=== PATIENT | male | born 2000 | race Two or more races ===

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

== ENCOUNTER 2019-01-20 22:48 | Emergency (ER) | payer OTHER ==
[~2019-01-20] VITALS: Ht 177.8 cm; Wt 56.7 kg
[~2019-01-20 22:48] MED LIST: CENTANY30 GM TOP; KEFLEX500 MG PO; TUSSI-PRES LIQ118 ML PO
== END 2019-01-20 23:58 | disposition home or self-care (01) ==
LOC: ER 22:48
DX: S01.82XA Laceration with foreign body of other part of head, initial encounter (principal); W18.09XA Striking against other object with subsequent fall, initial encounter; Y93.89 Activity, other specified; Y92.89 Other specified places as the place of occurrence of the external cause; Y99.8 Other external cause status

== ENCOUNTER 2019-12-08 13:12 | Emergency (ER) | payer OTHER ==
[~2019-12-08] VITALS: Ht 177.8 cm; Wt 56.7 kg
== END 2019-12-08 18:53 | disposition home or self-care (01) ==
LOC: ER 13:12
DX: K52.89 Other specified noninfective gastroenteritis and colitis (principal)

== ENCOUNTER 2020-04-14 09:37 | Emergency (ER) | payer OTHER ==
[~2020-04-14] VITALS: Ht 175.3 cm; Wt 54.0 kg
== END 2020-04-14 10:19 | disposition home or self-care (01) ==
LOC: ER 09:37
DX: L08.89 Other specified local infections of the skin and subcutaneous tissue (principal); M54.31 Sciatica, right side

== ENCOUNTER 2020-05-06 09:03 | Emergency (ER) | payer OTHER ==
[~2020-05-06] VITALS: Ht 180.3 cm; Wt 52.2 kg
== END 2020-05-06 15:40 | disposition home or self-care (01) ==
LOC: ER 09:03
DX: K50.00 Crohn's disease of small intestine without complications (principal); R10.84 Generalized abdominal pain

== ENCOUNTER 2020-08-19 09:22 | Inpatient (IN) | payer OTHER ==
[~2020-08-19] VITALS: Ht 177.8 cm; Wt 53.1 kg
[2020-08-19] MEDS ORDERED: HUMIRA PEN40 MG/0.2 (09:35)
== END 2020-08-21 08:34 | disposition home or self-care (01) | DRG 345 ==
LOC: ER 09:22 → SEC-K 18:39 → SURG 18:39
PROVIDERS: ADMIT Surgery; ATTEND Surgery
PROC: 0DJD4ZZ Inspection of Lower Intestinal Tract, Percutaneous Endoscopic Approach (ICD-10-PCS; principal; 2020-08-19 19:00)
DX: K56.1 Intussusception (principal); K50.018 Crohn's disease of small intestine with other complication; Z68.1 Body mass index [BMI] 19.9 or less, adult; Z20.828 Contact with and (suspected) exposure to other viral communicable diseases

== ENCOUNTER 2021-03-02 01:28 | Emergency (ER) | payer OTHER ==
[~2021-03-02] VITALS: Ht 180.3 cm; Wt 54.9 kg
[~2021-03-02 01:28] MED LIST changes: +HUMIRA PEN40 MG/0.2
[2021-03-02] MEDS ORDERED: ATIVAN1 M1 PO (01:45)
[2021-03-02] MEDS ORDERED: MUPIROCIN22 GM TOP (03:44)
[2021-03-02] MEDS ORDERED: CEPHALEXIN500 MG PO (03:44)
[2021-03-02] MEDS ORDERED: DOLOGESIC-DF 51 EACH PO (03:44)
== END 2021-03-02 03:51 | disposition home or self-care (01) ==
LOC: ER 01:28
DX: S00.83XA Contusion of other part of head, initial encounter (principal); S80.02XA Contusion of left knee, initial encounter; S50.02XA Contusion of left elbow, initial encounter; S60.221A Contusion of right hand, initial encounter; Y08.89XA Assault by other specified means, initial encounter; Y93.89 Activity, other specified; Y92.89 Other specified places as the place of occurrence of the external cause; Y99.8 Other external cause status

== ENCOUNTER 2021-05-10 11:36 | Emergency (ER) | payer OTHER ==
[~2021-05-10] VITALS: Ht 177.8 cm; Wt 57.2 kg
[~2021-05-10 11:36] MED LIST changes: +ATIVAN1 M1 PO; +CEPHALEXIN500 MG PO; +DOLOGESIC-DF 51 EACH PO; +MUPIROCIN22 GM TOP
[2021-05-10] MEDS ORDERED: PERCOCET 10-321 EACH (11:53)
[2021-05-10] MEDS ORDERED: NASAL MIST126 ML (11:54)
[2021-05-10] MEDS ORDERED: VISTARIL50 MG PO (16:19)
== END 2021-05-10 16:50 ==
LOC: ER 11:36
DX: G47.00 Insomnia, unspecified (principal); F12.20 Cannabis dependence, uncomplicated

== ENCOUNTER 2022-05-23 01:40 | Emergency (ER) | payer OTHER ==
[~2022-05-23] VITALS: Ht 180.3 cm; Wt 56.7 kg
[~2022-05-23 01:40] MED LIST changes: +NASAL MIST126 ML; +PERCOCET 10-321 EACH; +VISTARIL50 MG PO
[2022-05-23] MEDS ORDERED: [UNRECOGNIZED DRUG - OTHER] (01:50)
== END 2022-05-23 02:48 | disposition home or self-care (01) ==
LOC: ER 01:40
DX: F41.8 Other specified anxiety disorders (principal)